=== PATIENT | male | born 1955 | race Caucasian/White ===

== ENCOUNTER 2018-09-14 23:00 | Emergency (ER) | payer OTHER ==
[2018-09-15 00:21] LABS: Calcium 8.9 mg/dL (8.4-10.2)
[2018-09-15 00:54] LABS: Basophils # (Auto) 0.1 K/mm3 (0.0-0.1); Basophils % (Auto) 0.5 % (0.0-1.8); Eosinophils # (Auto) 0.9 K/mm3 (0.0-0.4); Eosinophils % (Auto) 7.4 % (0.0-4.3); Hematocrit 39.7 % (35.5-45.6); Hemoglobin 13.1 gm/dl (11.8-15.2); Lymphocytes # (Auto) 3.2 K/mm3 (1.2-5.4); Mean Corpuscular HGB Conc 33 % (32-34); Mean Corpuscular Volume 79 fl (84-94); Monocytes # (Auto) 0.5 K/mm3 (0.0-0.8); Monocytes % (Auto) 4.7 % (0.0-7.3); Platelet Count 151 K/mm3 (140-440); Red Blood Count 5.01 M/mm3 (3.65-5.03); Red Cell Distribution Width 13.3 % (13.2-15.2)
[2018-09-15] MEDS ORDERED: NACL 0.9% 1000 ML 1,000 ML IV ONE (02:22)
[2018-09-15] MEDS ORDERED: HumuLIN R IV ONE (02:22)
--- NOTE | 2018-09-15 02:27 | Emergency Department Report ---
ED General Adult HPI - General Chief complaint: Hyperglycemia Stated complaint: HIGH BLOOD SUGAR Time Seen by Provider: 09/15/18 02:16 Source: patient, family Mode of arrival: Ambulatory Limitations: No Limitations - History of Present Illness Initial comments: Patient is 63 years old male with history of diabetes and hypertension. Patient is taking Lantus 20 units at night and metformin. Patient is out of his Lantus for 1 week. Patient was sent from primary care physician office for elevated blood glucose. Patient found to have a blood glucose of more than 500. Patient denied any symptoms except for right upper extremity pain. While examining the patient patient had a brief episode of altered mental status, family stated that patient's since he had a stroke last year has been having episodes like this. - Related Data Allergies Allergy/AdvReac Type Severity Reaction Status Date / Time No Known Allergies Allergy Unverified 09/14/18 23:09 ED Review of Systems ROS: Stated complaint: HIGH BLOOD SUGAR Other details as noted in HPI Comment: All other systems reviewed and negative Constitutional: denies: chills, fever Respiratory: denies: cough, orthopnea, shortness of breath, SOB with exertion Cardiovascular: denies: chest pain, palpitations, dyspnea on exertion Gastrointestinal: denies: abdominal pain, nausea, vomiting Musculoskeletal: denies: back pain Neurological: denies: headache, weakness, numbness, paresthesias, confusion ED Past Medical Hx - Past Medical History Previous Medical History?: Yes Hx Hypertension: Yes Hx Diabetes: Yes - Surgical History Past Surgical History?: No - Social History Smoking Status: Current Every Day Smoker Substance Use Type: None ED Physical Exam - General Limitations: No Limitations General appearance: alert, in no apparent distress - Head Head exam: Present: atraumatic, normocephalic, normal inspection - Eye Eye exam: Present: normal appearance, PERRL - ENT ENT exam: Present: normal exam, normal orophraynx, mucous membranes moist - Neck Neck exam: Present: normal inspection, full ROM. Absent: tenderness, meningismus, lymphadenopathy, thyromegaly - Respiratory Respiratory exam: Present: normal lung sounds bilaterally. Absent: respiratory distress, wheezes, rales, rhonchi, chest wall tenderness, accessory muscle use, decreased breath sounds, prolonged expiratory - Cardiovascular Cardiovascular Exam: Present: regular rate, normal rhythm, normal heart sounds - GI/Abdominal GI/Abdominal exam: Present: soft, normal bowel sounds. Absent: distended, tenderness, guarding, rebound, rigid, organomegaly, mass, bruit, pulsatile mass, hernia - Extremities Exam Extremities exam: Present: normal inspection, full ROM, normal capillary refill - Back Exam Back exam: Present: normal inspection, full ROM. Absent: tenderness, CVA tenderness (R), CVA tenderness (L), muscle spasm, paraspinal tenderness, vertebral tenderness - Neurological Exam Neurological exam: Present: alert, oriented X3, CN II-XII intact, normal gait, reflexes normal - Skin Skin exam: Present: warm, intact, normal color ED Course Vital Signs 09/14/18 09/15/18 09/15/18 23:07 02:23 02:28 Temperature 97.7 F Pulse Rate 70 59 L Respiratory 18 16 Rate Blood Pressure 129/65 O2 Sat by Pulse 100 99 Oximetry 09/15/18 09/15/18 09/15/18 02:30 02:45 03:00 Temperature Pulse Rate 60 60 65 Respiratory 12 13 15 Rate Blood Pressure 137/68 O2 Sat by Pulse 100 100 99 Oximetry 09/15/18 03:18 Temperature Pulse Rate 68 Respiratory Rate Blood Pressure O2 Sat by Pulse 100 Oximetry ED Medical Decision Making - Lab Data Result diagrams: 09/14/18 23:39 09/14/18 23:39 - Medical Decision Making Patient is 63 years old male with history of diabetes and hypertension. Patient is taking Lantus 20 units at night and metformin. Patient is out of his Lantus for 1 week. Patient was sent from primary care physician office for elevated blood glucose. Patient found to have a blood glucose of more than 500. Patient denied any symptoms except for right upper extremity pain. While examining the patient patient had a brief episode of altered mental status, family stated that patient's since he had a stroke last year has been having episodes like this. Patient remained stable in the ER. Patient received 7 units of regular insulin his current blood glucose now is 289. Patient to be discharged to follow-up with his primary care physician. Patient already have a prescription from his primary care physician for the Lantus. I advised the patient and his family to return to the ER if symptoms are not improved or if the patient develop new symptoms. Critical care attestation.: If time is entered above; I have spent that time in minutes in the direct care of this critically ill patient, excluding procedure time. ED Disposition Clinical Impression: Hyperglycemia Disposition: DC-01 TO HOME OR SELFCARE Is pt being admited?: No Condition: Stable Instructions: Diabetic Hyperglycemia (ED) Referrals: MAIA MESA MD [Primary Care Provider] - 3-5 Days
[2018-09-15 03:18] LABS: Bilirubin,Urine NEG (Negative); Blood,Urine NEG (Negative); Color,Urine Straw (Yellow); Urobilinogen,Urine < 2.0 mg/dL (<2.0)
[2018-09-15 03:30] VITALS: BP 137/68
--- NOTE | 2018-09-15 03:50 | Cat Scan Report ---
PROCEDURE: CT HEAD/BRAIN WO CON TECHNIQUE: Routine axial imaging was obtained of the brain without IV contrast. HISTORY: AMS COMPARISONS: None FINDINGS: There is a remote stroke in the left temporal lobe. There is no evidence of acute stroke or hemorrhag e. The ventricular system is appropriate in size and is symmetric. There are benign basal ganglial ca lcifications. The sinuses reveal patchy mucosal thickening in the ethmoidal and maxillary sinuses. Th e mastoid air cells are well pneumatized. The calvarium appears intact. IMPRESSION: Remote stroke in the left temporal lobe. No acute stroke or hemorrhage.. This document is electronically signed by Saul Mckeon MD., September 15 2018 03:48:04 AM ET
== END 2018-09-15 05:42 | disposition home or self-care (01) ==
LOC: ED 23:00
DX: E11.65 Type 2 diabetes mellitus with hyperglycemia (principal); I10 Essential (primary) hypertension; F17.200 Nicotine dependence, unspecified, uncomplicated
CPT/HCPCS: 36415; 70450; 80048; 81001; 82805; 82962; 85025; 96361; 96374; 99284; J7030; J1815

== ENCOUNTER 2018-09-15 06:46 | Inpatient (IN) | payer OTHER ==
--- NOTE | 2018-09-15 07:58 | Emergency Department Report ---
ED General Adult HPI - General Chief complaint: Syncope Stated complaint: SYNCOPE Time Seen by Provider: 09/15/18 07:40 Source: family, EMS Mode of arrival: Stretcher Limitations: No Limitations - History of Present Illness Initial comments: Patient presents to the emergency department with a chief complaint of syncopal episode. The patient was seen in the emergency department last night for hypoglycemia and treated for it and discharged home. Patient states when he got home he passed out. Patient denies chest pain prior or after his syncopal epi sode. Patient also denies shortness of breath or abdominal pain. 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 -: Sudden Severity scale (0 -10): 0 Consistency: now resolved Improves with: none Worsens with: none Associated Symptoms: denies other symptoms Treatments Prior to Arrival: none - Related Data Home Medications Medication Instructions Recorded Confirmed Last Taken Losartan [Cozaar] 100 mg PO QDAY 09/15/18 09/15/18 Unknown Metformin HCl [Glucophage] 1,000 mg PO BID 09/15/18 09/15/18 Unknown Naproxen 500 mg PO PRN 09/15/18 09/15/18 Unknown amLODIPine [Norvasc] 10 mg PO DAILY 09/15/18 09/15/18 Unknown Allergies Allergy/AdvReac Type Severity Reaction Status Date / Time No Known Allergies Allergy Unverified 09/14/18 23:09 ED Review of Systems ROS: Stated complaint: SYNCOPE Other details as noted in HPI Comment: All other systems reviewed and negative Constitutional: denies: chills, fever Eyes: denies: eye pain, eye discharge, vision change ENT: denies: ear pain, throat pain Respiratory: denies: cough, shortness of breath, wheezing Cardiovascular: denies: chest pain, palpitations Endocrine: no symptoms reported Gastrointestinal: denies: abdominal pain, nausea, diarrhea Genitourinary: denies: urgency, dysuria Musculoskeletal: denies: back pain, joint swelling, arthralgia Skin: denies: rash, lesions Neurological: denies: headache, weakness, paresthesias Psychiatric: denies: anxiety, depression Hematological/Lymphatic: denies: easy bleeding, easy bruising ED Past Medical Hx - Past Medical History Previous Medical History?: Yes Hx Hypertension: Yes Hx Diabetes: Yes - Social History Smoking Status: Never Smoker Substance Use Type: None - Medications Home Medications: Home Medications Medication Instructions Recorded Confirmed Last Taken Type Losartan [Cozaar] 100 mg PO QDAY 09/15/18 09/15/18 Unknown History Metformin HCl [Glucophage] 1,000 mg PO BID 09/15/18 09/15/18 Unknown History Naproxen 500 mg PO PRN 09/15/18 09/15/18 Unknown History amLODIPine [Norvasc] 10 mg PO DAILY 09/15/18 09/15/18 Unknown History ED Physical Exam - General Limitations: No Limitations General appearance: alert, in no apparent distress - Head Head exam: Present: atraumatic, normocephalic - Eye Eye exam: Present: normal appearance, PERRL, EOMI - ENT ENT exam: Present: mucous membranes moist - Neck Neck exam: Present: normal inspection - Respiratory Respiratory exam: Present: normal lung sounds bilaterally. Absent: respiratory distress, wheezes, rales - Cardiovascular Cardiovascular Exam: Present: regular rate, normal rhythm. Absent: systolic murmur, diastolic murmur, rubs, gallop - GI/Abdominal GI/Abdominal exam: Present: soft, normal bowel sounds. Absent: distended, tenderness - Rectal Rectal exam: Present: deferred - Extremities Exam Extremities exam: Present: normal inspection - Back Exam Back exam: Present: normal inspection - Neurological Exam Neurological exam: Present: alert, oriented X3, CN II-XII intact. Absent: motor sensory deficit - Psychiatric Psychiatric exam: Present: normal affect, normal mood - Skin Skin exam: Present: warm, dry, intact, normal color. Absent: rash ED Course Vital Signs 09/15/18 09/15/18 09/15/18 06:53 07:00 07:40 Temperature 97.5 F L Pulse Rate 70 68 Respiratory 18 13 13 Rate Blood Pressure 140/68 O2 Sat by Pulse 98 98 Oximetry 09/15/18 09/15/18 09/15/18 08:00 09:00 10:00 Temperature Pulse Rate 64 62 57 L Respiratory 11 L 9 L 12 Rate Blood Pressure 154/77 169/73 167/68 O2 Sat by Pulse 98 99 99 Oximetry ED Medical Decision Making - Lab Data Lab Results 09/15/18 09/15/18 09/15/18 Range/Units 08:01 10:05 10:29 POC Glucose 293 H (70-105) Troponin T < 0.010 (0.00-0.029) ng/mL Urine Color Yellow (Yellow) Urine Turbidity Clear (Clear) Urine pH 6.0 (5.0-7.0) Ur Specific [place] 1.017 (1.003-1.030) Urine Protein 100 mg/dl (Negative) mg/dL Urine Glucose (UA) >=500 (Negative) mg/dL Urine Ketones Neg (Negative) mg/dL Urine Blood Sm (Negative) Urine Nitrite Neg (Negative) Urine Bilirubin Neg (Negative) Urine Urobilinogen < 2.0 (<2.0) mg/dL Ur Leukocyte Esterase Tr (Negative) Urine WBC (Auto) 2.0 (0.0-6.0) /HPF Urine RBC (Auto) 1.0 (0.0-6.0) /HPF U Epithel Cells (Auto) 3.0 (0-13.0) /HPF Urine Bacteria (Auto) 1+ (Negative) /HPF Urine Mucus Few /HPF Urine Sperm Few (SUPERVISOR BINDERY) /HPF - EKG Data -: EKG Interpreted by Me EKG shows normal: sinus rhythm Rate: bradycardia - Radiology Data Radiology results: report reviewed - Medical Decision Making Patient's labs and CAT scan were reviewed from previous visit within the last 12 hours Since the studies were recently done a CAT scan of the head and majority of the blood was not repeated Discussed plan of care and was also patient and his family Critical care attestation.: If time is entered above; I have spent that time in minutes in the direct care of this critically ill patient, excluding procedure time. ED Disposition Clinical Impression: Syncope Disposition: DC-09 OP ADMIT IP TO THIS HOSP Is pt being admited?: Yes Does the pt Need Aspirin: No Condition: Fair Instructions: Syncope (ED) Referrals: LIZETH CORDOVA MD [Primary Care Provider] - 3-5 Days
--- NOTE | 2018-09-15 08:45 | XRay Report ---
PROCEDURE: XR CHEST 1V AP TECHNIQUE: AP portable chest radiograph HISTORY: syncope COMPARISONS: None FINDINGS: No mediastinal shift. Cardiac silhouette is not enlarged. No pneumothorax or effusion. A 2.5 cm oval pulmonary nodule projects over the region of the right minor fissure. No acute skeletal findings. IMPRESSION: No acute pulmonary finding identified. An oval 2.5 cm right lung pulmonary nodule projects over the region of the minor fissure. CT follow-u p is recommended if this finding has not been previously documented. This document is electronically signed by Dinesh Melendez MD., September 15 2018 08:44:10 AM ET
[2018-09-15 10:40] LABS: Bacteria,Urine 1+ /HPF (Negative); Bilirubin,Urine NEG (Negative); Blood,Urine SM (Negative); Color,Urine Yellow (Yellow); Mucus,Urine FEW /HPF; Sperm,Urine FEW /HPF (NP); Urobilinogen,Urine < 2.0 mg/dL (<2.0)
[2018-09-15] MEDS: HumaLOG SUB-Q SCH ×2 (18:38→22:39)
[2018-09-15] MEDS ORDERED: TYLENOL PO PRN ×2 (18:38→21:04)
--- NOTE | 2018-09-15 20:59 | History and Physical Report ---
History of Present Illness Date of examination: 09/15/18 Date of admission: 09/15/18 11:37 Chief complaint: Passed out this am History of present illness: 63 y/o male with PMH of HTN and T2DM apparently passed out this am.No chest pain.LOC for a few seconds.No diaphoresis or palpitations. Patient was treated high BG levels in ER yesterday and was discharged home. Hos BGl levels were in 500 yesterday.No Low sugars. Past Medical History Hypertension T2DM Past surgical History N/a Social History Smoking Status: Never Smoker Substance Use Type: None Family History Htn Review of Systems ROS: Stated complaint: SYNCOPE Other details as noted in HPI Comment: All other systems reviewed and negative Constitutional: denies: chills, fever Eyes: denies: eye pain, eye discharge, vision change ENT: denies: ear pain, throat pain Respiratory: denies: cough, shortness of breath, wheezing Cardiovascular: denies: chest pain, palpitations Endocrine: no symptoms reported Gastrointestinal: denies: abdominal pain, nausea, diarrhea Genitourinary: denies: urgency, dysuria Musculoskeletal: denies: back pain, joint swelling, arthralgia Skin: denies: rash, lesions Neurological: denies: headache, weakness, paresthesias Psychiatric: denies: anxiety, depression Hematological/Lymphatic: denies: easy bleeding, easy bruising Medications and Allergies Allergies Allergy/AdvReac Type Severity Reaction Status Date / Time No Known Allergies Allergy Unverified 09/14/18 23:09 Home Medications Medication Instructions Recorded Confirmed Last Taken Type Losartan [Cozaar] 100 mg PO QDAY 09/15/18 09/15/18 Unknown History Metformin HCl [Glucophage] 1,000 mg PO BID 09/15/18 09/15/18 Unknown History Naproxen 500 mg PO PRN 09/15/18 09/15/18 Unknown History amLODIPine [Norvasc] 10 mg PO DAILY 09/15/18 09/15/18 Unknown History Active Meds: Active Medications Acetaminophen (Tylenol) 650 mg PO Q6H PRN PRN Reason: Pain, Mild (1-3) Insulin Human Lispro (Humalog) 0 unit SUB-Q ACHS [facility]; Protocol Last Admin: 09/15/18 18:38 Dose: 6 unit Documented by: Exam - Constitutional Vitals: Temp Pulse Resp BP Pulse Ox 97.8 F 105 H 11 L 163/98 96 09/15/18 15:03 09/15/18 16:41 09/15/18 16:41 09/15/18 16:41 09/15/18 16:41 General appearance: Present: no acute distress, well-nourished - EENT Eyes: Present: PERRL ENT: hearing intact, clear oral mucosa - Neck Neck: Present: supple, normal ROM - Respiratory Respiratory effort: normal Respiratory: bilateral: CTA - Cardiovascular Heart rate: 59 Rhythm: regular Heart Sounds: Present: S1 & S2. Absent: rub, click - Extremities Extremities: no ischemia, pulses intact, pulses symmetrical, No edema Peripheral Pulses: within normal limits - Abdominal General gastrointestinal: Present: soft, non-tender, non-distended, normal bowel sounds Male genitourinary: Present: normal - Integumentary Integumentary: Present: clear, warm, dry - Musculoskeletal Musculoskeletal: gait normal, strength equal bilaterally - Psychiatric Psychiatric: appropriate mood/affect, intact judgment & insight - Neurologic Neurologic: CNII-XII intact, moves all extremities Results - Labs CBC & Chem 7: 09/16/18 04:55 09/16/18 04:55 Labs: Laboratory Last Values POC Glucose 354 (70-105) H 09/15/18 17:58 Troponin T < 0.010 ng/mL (0.00-0.029) 09/15/18 08:01 Urine Color Yellow (Yellow) 09/15/18 10:05 Urine Turbidity Clear (Clear) 09/15/18 10:05 Urine pH 6.0 (5.0-7.0) 09/15/18 10:05 Ur Specific [place] 1.017 (1.003-1.030) 09/15/18 10:05 Urine Protein 100 mg/dl mg/dL (Negative) 09/15/18 10:05 Urine Glucose (UA) >=500 mg/dL (Negative) 09/15/18 10:05 Urine Ketones Neg mg/dL (Negative) 09/15/18 10:05 Urine Blood Sm (Negative) 09/15/18 10:05 Urine Nitrite Neg (Negative) 09/15/18 10:05 Urine Bilirubin Neg (Negative) 09/15/18 10:05 Urine Urobilinogen < 2.0 mg/dL (<2.0) 09/15/18 10:05 Ur Leukocyte Esterase Tr (Negative) 09/15/18 10:05 Urine WBC (Auto) 2.0 /HPF (0.0-6.0) 09/15/18 10:05 Urine RBC (Auto) 1.0 /HPF (0.0-6.0) 09/15/18 10:05 U Epithel Cells (Auto) 3.0 /HPF (0-13.0) 09/15/18 10:05 Urine Bacteria (Auto) 1+ /HPF (Negative) 09/15/18 10:05 Urine Mucus Few /HPF 09/15/18 10:05 Urine Sperm Few /HPF (NAILER OPERATOR) 09/15/18 10:05 Short CBC 09/15/18 09/16/18 Range/Units 21:41 04:55 WBC 10.3 10.9 (4.5-11.0) K/mm3 Hgb 12.9 12.4 (11.8-15.2) gm/dl Hct 39.0 38.1 (35.5-45.6) % Plt Count 185 174 (140-440) K/mm3 BMP 09/15/18 09/16/18 21:41 04:55 Sodium 138 D 143 Potassium 3.8 3.7 Chloride 102.0 105.4 Carbon Dioxide 22 23 BUN 25 H 24 H Creatinine 1.3 1.3 Glucose 335 H 101 H Calcium 8.6 8.6 Cardiac Enzymes 09/15/18 Range/Units 08:01 Troponin T < 0.010 (0.00-0.029) ng/mL Liver Function 09/15/18 Range/Units 21:41 Total Bilirubin 0.20 (0.1-1.2) mg/dL AST 11 (5-40) units/L ALT 10 (7-56) units/L Alkaline Phosphatase 71 (35-129) units/L Albumin 3.2 L (3.9-5) g/dL Urine 09/15/18 Range/Units 10:05 Urine Color Yellow (Yellow) Urine pH 6.0 (5.0-7.0) Ur Specific [place] 1.017 (1.003-1.030) Urine Protein 100 mg/dl (Negative) mg/dL Urine Glucose (UA) >=500 (Negative) mg/dL - Imaging and Cardiology EKG: report reviewed (sinus bradycardia) Chest x-ray: report reviewed Imaging and Cardiology: CXR IMPRESSION: No acute pulmonary finding identified. An oval 2.5 cm right lung pulmonary nodule projects over the region of the minor fissure. CT follow-up is recommended if this finding has not been previously documented. Assessment and Plan Advance Directives: Yes (Full code) VTE prophylaxis?: Chemical - Patient Problems (1) Syncope Current Visit: Yes Status: Acute Plan to address problem: Syncope w/u Check Lexiscan ECHO and CDS (2) Pulmonary nodule Current Visit: Yes Status: Chronic Plan to address problem: Chest CT ordered Pulnm consult reuested so that patient can follow up for Pulm nodule (3) T2DM (type 2 diabetes mellitus) Current Visit: Yes Status: Chronic Qualifiers: Diabetes mellitus group home insulin use: unspecified group home insulin use status Plan to address problem: Uncontrolled Added Tradjenta and Glipizide 5 mg po qd No need for Long acting insulin at this point F/u with PCP for better control of T2DM (4) HTN (hypertension) Current Visit: Yes Status: Chronic Qualifiers: Hypertension type: essential hypertension Qualified Code(s): I10 - Essential (primary) hypertension Plan to address problem: Cont antihypertensives (5) DVT prophylaxis Current Visit: Yes Status: Acute Plan to address problem: On Lovenox and GI prophylaxis
[2018-09-15] MEDS ORDERED: DILAUDID IV PRN (21:04)
[2018-09-15] MEDS ORDERED: ZOFRAN IV PRN (21:04)
[2018-09-15] MEDS ORDERED: PERCOCET 5/325 PO PRN (21:04)
[2018-09-15] MEDS ORDERED: SODIUM CHLORIDE FLUSH SYRINGE 10 ML IV PRN (21:04)
[2018-09-15] MEDS: NACL 0.9% 1000 ML 1,000 ML IV SCH (22:03)
[2018-09-15] MEDS: SODIUM CHLORIDE FLUSH SYRINGE 10 ML IV SCH (22:11)
[2018-09-15 23:17] LABS: Basophils # (Auto) 0.1 K/mm3 (0.0-0.1); Basophils % (Auto) 0.6 % (0.0-1.8); Eosinophils # (Auto) 1.1 K/mm3 (0.0-0.4); Eosinophils % (Auto) 10.7 % (0.0-4.3); Hemoglobin 12.9 gm/dl (11.8-15.2); Lymphocytes # (Auto) 2.7 K/mm3 (1.2-5.4); Lymphocytes % (Auto) 25.9 % (13.4-35.0); Mean Corpuscular HGB Conc 33 % (32-34); Mean Corpuscular Volume 80 fl (84-94); Monocytes # (Auto) 0.6 K/mm3 (0.0-0.8); Monocytes % (Auto) 5.5 % (0.0-7.3); Platelet Count 185 K/mm3 (140-440); Red Blood Count 4.87 M/mm3 (3.65-5.03); Red Cell Distribution Width 13.5 % (13.2-15.2)
[2018-09-15 23:51] LABS: Albumin 3.2 g/dL (3.9-5); Calcium 8.6 mg/dL (8.4-10.2)
[2018-09-16 06:17] LABS: Basophils % (Auto) 0.4 % (0.0-1.8); Eosinophils # (Auto) 0.4 K/mm3 (0.0-0.4); Eosinophils % (Auto) 3.3 % (0.0-4.3); Hematocrit 38.1 % (35.5-45.6); Hemoglobin 12.4 gm/dl (11.8-15.2); Lymphocytes # (Auto) 1.5 K/mm3 (1.2-5.4); Lymphocytes % (Auto) 13.8 % (13.4-35.0); Mean Corpuscular HGB Conc 33 % (32-34); Mean Corpuscular Volume 80 fl (84-94); Monocytes # (Auto) 0.5 K/mm3 (0.0-0.8); Monocytes % (Auto) 4.6 % (0.0-7.3); Platelet Count 174 K/mm3 (140-440); Red Blood Count 4.74 M/mm3 (3.65-5.03); Red Cell Distribution Width 13.6 % (13.2-15.2)
[2018-09-16 06:26] LABS: Calcium 8.6 mg/dL (8.4-10.2)
[2018-09-16] MEDS ORDERED: GLUCOPHAGE PO SCH (08:00)
[2018-09-16] MEDS ORDERED: GLUCOTROL PO SCH (08:00)
[2018-09-16] MEDS: HumaLOG SUB-Q SCH ×5 (08:19→22:56)
[2018-09-16] MEDS ORDERED: LEXISCAN IV ONE ×2 (09:40→10:00)
--- NOTE | 2018-09-16 09:49 | Consultation ---
History of Present Illness Consult date: 09/16/18 Requesting physician: CORDELL GALVAN Reason for consult: other (Pulmonary nodule) History of present illness: Patient presents to the emergency department with a chief complaint of syncopal episode. The patient was seen in the emergency department last night for hypoglycemia and treated for it and discharged home. Patient states when he got home he passed out. Patient denies chest pain prior or after his syncopal e pisode. Patient also denies shortness of breath or abdominal pain. Part of his work up was a CXR which showed a right lower lobe mass. A chest CT was done and I have been consulted fro the lung mass. Patient was seen and examined. Vitals, labs, medications, chart and imaging were rviewed. He currently denies any chest pain, no shortness of breath, no hemoptysis No night sweats, no chills, no weight loss. Originally from [facility] Smoker 1 PPD for many years, still smoking. ROS: Stated complaint: SYNCOPE Other details as noted in HPI Comment: All other systems reviewed and negative Constitutional: denies: chills, fever Eyes: denies: eye pain, eye discharge, vision change ENT: denies: ear pain, throat pain Respiratory: denies: cough, shortness of breath, wheezing Cardiovascular: denies: chest pain, palpitations Endocrine: no symptoms reported Gastrointestinal: denies: abdominal pain, nausea, diarrhea Genitourinary: denies: urgency, dysuria Musculoskeletal: denies: back pain, joint swelling, arthralgia Skin: denies: rash, lesions Neurological: denies: headache, weakness, paresthesias Psychiatric: denies: anxiety, depression Hematological/Lymphatic: denies: easy bleeding, easy bruising - Past Medical History Previous Medical History?: Yes Hx Hypertension: Yes Hx Diabetes: Yes Medications and Allergies Allergies Allergy/AdvReac Type Severity Reaction Status Date / Time No Known Allergies Allergy Unverified 09/14/18 23:09 Home Medications Medication Instructions Recorded Confirmed Last Taken Type Losartan [Cozaar] 100 mg PO QDAY 09/15/18 09/15/18 Unknown History amLODIPine [Norvasc] 10 mg PO DAILY 09/15/18 09/15/18 Unknown History Insulin Glargine [Lantus VIAL] 14 units SUB-Q QHS #30 units 09/16/18 Unknown Rx Insulin Regular, Human [HumuLIN R] 0 unit SQ AC #1 vial 09/16/18 Unknown Rx Active Meds: Active Medications Acetaminophen (Tylenol) 650 mg PO Q4H PRN PRN Reason: Pain MILD(1-3)/Fever >100.5/BLACKMAN Amlodipine Besylate (Norvasc) 10 mg PO DAILY [facility] Enoxaparin Sodium (Lovenox) 40 mg SUB-Q QDAY@2200 SAVANNAH Glipizide (Glucotrol) 5 mg PO QDDIAB [facility] Last Admin: 09/16/18 08:20 Dose: Not Given Documented by: Hydromorphone HCl (Dilaudid) 0.5 mg IV Q3H PRN PRN Reason: Pain , Severe (7-10) Sodium Chloride (Nacl 0.9% 1000 Ml) 1,000 mls @ 100 mls/hr IV DIRECT [facility] Last Admin: 09/15/18 22:03 Dose: 100 mls/hr Documented by: Insulin Human Lispro (Humalog) 0 unit SUB-Q [facility]; Protocol Last Admin: 09/16/18 08:19 Dose: Not Given Documented by: Linagliptin (Tradjenta) 5 mg PO QDAY [facility] Losartan Potassium (Cozaar) 100 mg PO QDAY [facility] Metformin HCl (Glucophage) 1,000 mg PO BIDDIAB [facility] Last Admin: 09/16/18 08:20 Dose: Not Given Documented by: Ondansetron HCl (Zofran) 4 mg IV Q8H PRN PRN Reason: Nausea And Vomiting Oxycodone/Acetaminophen (Percocet 5/325) 1 tab PO Q6H PRN PRN Reason: Pain, Moderate (4-6) Regadenoson (Lexiscan) 0.4 mg IV ONCE ONE Stop: 09/16/18 09:39 Sodium Chloride (Sodium Chloride Flush Syringe 10 Ml) 10 ml IV BID [facility] Last Admin: 09/15/18 22:11 Dose: 10 ml Documented by: Sodium Chloride (Sodium Chloride Flush Syringe 10 Ml) 10 ml IV PRN PRN PRN Reason: LINE FLUSH Physical Examination Vital signs: Vital Signs Temp Pulse Resp Pulse Ox 97.5 F L 70 18 98 09/15/18 06:53 09/15/18 06:53 09/15/18 06:53 09/15/18 06:53 General appearance: Present: no acute distress, well-nourished - EENT Eyes: Present: PERRL ENT: hearing intact, clear oral mucosa - Neck Neck: Present: supple, normal ROM - Respiratory Respiratory effort: normal Respiratory: bilateral: CTA - Cardiovascular Heart rate: 59 Rhythm: regular Heart Sounds: Present: S1 & S2. Absent: rub, click - Extremities Extremities: no ischemia, pulses intact, pulses symmetrical, No edema Peripheral Pulses: within normal limits - Abdominal General gastrointestinal: Present: soft, non-tender, non-distended, normal bowel sounds Male genitourinary: Present: normal - Integumentary Integumentary: Present: clear, warm, dry - Musculoskeletal Musculoskeletal: gait normal, strength equal bilaterally - Psychiatric Psychiatric: appropriate mood/affect, intact judgment & insight - Neurologic Neurologic: CNII-XII intact, moves all extremities Results - Laboratory Findings CBC and BMP: 09/16/18 04:55 09/16/18 04:55 Abnormal lab findings: Abnormal Labs 09/15/18 09/15/18 09/15/18 10:29 17:58 21:41 MCV 80 L MCH 26 L Eos % (Auto) 10.7 H Eos # 1.1 H Seg Neutrophils % Seg Neutrophils # BUN Glucose POC Glucose 293 H 354 H Hemoglobin A1c Total Protein Albumin 09/15/18 09/15/18 09/15/18 21:41 21:41 21:58 MCV MCH Eos % (Auto) Eos # Seg Neutrophils % Seg Neutrophils # BUN 25 H Glucose 335 H POC Glucose 309 H Hemoglobin A1c 13.4 H Total Protein 5.8 L Albumin 3.2 L 09/16/18 09/16/18 09/16/18 04:55 04:55 07:45 MCV 80 L MCH 26 L Eos % (Auto) Eos # Seg Neutrophils % 77.9 H Seg Neutrophils # 8.5 H BUN 24 H Glucose 101 H POC Glucose 126 H Hemoglobin A1c Total Protein Albumin Assessment and Plan Right lower lobe lung mass Tobacco use disorder, ongoing Syncope Type 2 DM, poorly controlled HTN - I have no previous films to compare to. The location and nodule characteristics are low probability for lung cancer, however the patient characteristics, make the possibility of malignancy high. Would recommend CT guided biopsy of the mass -Nicotine withdrawal precautions -Smoking cessation counselling done at the bedside. he states he never knew smoking was bad, so he will quit. -Accuchecks, glycemic control -VTE prophylaxis -Nicotine withdrawal precautions -Lifestyle modifications -Blood pressure control. Thank you very much for this consult. Will follow. Discussed with Dr. Galvan, re my recommendations.
[2018-09-16] MEDS ORDERED: TRADJENTA PO SCH (10:00)
--- NOTE | 2018-09-16 12:15 | Cat Scan Report ---
CT CHEST WITH CONTRAST: HISTORY: Pulmonary nodule. COMPARISON: 10/20/09. TECHNIQUE: Helical CT in 1.25mm intervals following IV contrast. Sagittal and coronal reformatted images. FINDINGS: Thyroid gland: Normal. Tracheobronchial tree: Normal. Esophagus: Normal. Heart: Normal. Pericardium: Normal. Mediastinum: There are mild to moderate atherosclerotic plaques in the thoracic aorta. No large aneurysm, dissection or stenosis. Lung Sung: A 3 mm calcified granuloma is identified at the left apex. A 5 mm calcified granuloma is identified in the left lower lobe. There are 3 calcified granulomas with mild surrounding scarring in the superior segment of the right lower lobe measuring 2.3 cm, 0.5 cm and 0.4 cm. No suspicious noncalcified pulmonary nodule. The lung parenchyma is within normal limits. Pleural Spaces: Normal. Musculoskeletal: Intact. Mild thoracic spondylosis. IMPRESSION: Chronic granulomatous disease as described above which is unchanged since 10/20/09. No suspicious pulmonary nodule.
--- NOTE | 2018-09-16 13:31 | Vascular Lab Report ---
PROCEDURE: VL CAROTID DUPLEX BILAT TECHNIQUE: Duplex Doppler ultrasound examination of the cervical arteries bilaterally. Note: Measurement of carotid stenosis is based on flow velocity values that correlate with the [place] Symptomatic Carotid Endarterectomy Trial (NASCET) based stenosis criteria using the internal carotid artery diameter as the denominator for stenosis calculation. HISTORY: Syncope COMPARISONS: None FINDINGS: Echogenic heterogeneous plaque is present without evidence of ulceration in the carotid artery system bilaterally. Flow is antegrade in both vertebral arteries. No evidence of aneurysm or occlusion. Abnormal peak systolic and end-diastolic centimeters per second velocity elevation: Right Proximal ICA, 386, 102 Left distal ICA, 134, 46 IMPRESSION: Bilateral carotid artery atherosclerotic change Right proximal ICA velocity elevation suggest greater than 70% diameter stenosis. Corresponding color image Doppler image suggests stenosis closer to 75% diameter. Follow-up carotid CTA or MRA may be us eful. Left distal ICA velocity elevation suggests diameter stenosis between 50 and 69%. This document is electronically signed by Azam Markham MD., September 16 2018 01:28:56 PM ET
--- NOTE | 2018-09-16 13:42 | Event Note ---
Date: 09/16/18 CT demonstrates chronic granulomatous disease with a focal partially noncalcified nodule with speckled calcifications which is unchanged since . Do not recommend CT guided biopsy of the presumed noncalficied granuloma. This is unchanged for essentially 9 years.
[2018-09-16] MEDS: COZAAR PO SCH (13:45)
[2018-09-16] MEDS: NORVASC PO SCH (13:46)
[2018-09-16] MEDS: SODIUM CHLORIDE FLUSH SYRINGE 10 ML IV SCH ×2 (13:47→22:55)
[2018-09-16] MEDS: NACL 0.9% 1000 ML 1,000 ML IV SCH (13:49)
--- NOTE | 2018-09-16 15:50 | Discharge Summary ---
Providers - Providers Date of Admission: 09/15/18 11:37 Attending physician: CORDELL MAHONEY MD 09/16/18 06:41 Consult to Physician [CONS] Routine Comment: Consulting Provider: HANY AGUILA Physician Instructions: Reason For Exam: solitary pulm nodule 09/16/18 11:39 Consult to Interventional Radiology [CONS] Routine Consulting Provider: HUBER PRECIADO Reason For Exam: Lobar nodule/mass- needs biopsy Place consult to:: DR. PRECIADO OFFICE Notified:: DR. Mcpherson OFFICE Phone number called:: [phone] Was contact made?: Yes If yes, spoke with:: ISABEL Time called:: 12:41 Comment:: NURSE IS NOTIFIED [facility] Condition: Fair Disposition: DC-01 TO HOME OR SELFCARE Exam - Constitutional Vitals: Temp Pulse Resp BP Pulse Ox 97.5 F L 60 20 151/66 99 09/16/18 07:06 09/16/18 13:46 09/16/18 08:04 09/16/18 13:46 09/16/18 07:06 Plan Activity: advance as tolerated, fall precautions Diet: diabetic Special Instructions: record daily BP diary, record blood sugar diary Follow up with: MAISHA MUNOZWALLINGFORD MD ERIC [Primary Care Provider] - 3-5 Days Prescriptions: Insulin Glargine [Lantus VIAL] 14 units SUB-Q QHS #30 units
--- NOTE | 2018-09-16 20:17 | Treadmill Report ---
NUCLEAR PERFUSION SCAN PROTOCOL: The patient was brought to the stress lab in a postabsorptive state, given 10 mCi of technetium 99m at rest. The patient underwent rest imaging. The patient underwent Lexiscan stress test. At peak stress, the patient was given 26 mCi of technetium 99m. Shortly after stress imaging, raw imaging reveals mild GI artifact, no significant motion artifact. SPECT imaging examined carefully in the horizontal long axis, vertical long axis, short axis views. There was normal homogenous uptake of radioisotope in all reported segments. No evidence of significant fixed or reversible perfusion defects suggestive of prior infarction or ischemia. Gated wall motion reveals normal systolic thickening, calculated ejection fraction of 74%. No TID. CONCLUSIONS: 1. Normal myocardial perfusion scan without evidence of active ischemia or prior infarction. 2. Normal left ventricular systolic performance systolic performance without evidence of transient ischemic dilatation or stress-induced segmental wall motion abnormalities. JOB# [id number] CHIOMA/YENY
[2018-09-16] MEDS ORDERED: ATIVAN IV PRN (20:23)
--- NOTE | 2018-09-16 20:44 | Event Note ---
Date: 09/16/18 High BG levels Increased Lantus to 25 units qhs Held discharge Slightly altered sensorium
[2018-09-16] MEDS ORDERED: LANTUS SUB-Q SCH (22:00)
--- NOTE | 2018-09-16 22:10 | Progress Note ---
Assessment and Plan Assessment and plan: 63 y/o male with PMH of HTN and T2DM apparently passed out this am.No chest pain. LOC for a few seconds. No diaphoresis or palpitations. Patient was treated high BG levels in ER yesterday and was discharged home. Events happened after the patient arrived home prior to discharge from the ER his blood sugar was 200s. The patient had a stress test today that was negative plan was to discharge the patient is felt that this could be secondary to hypoglycemia but the events reoccurred again the hospital with a blood sugar being in the 400s CT chest: IMPRESSION: Chronic granulomatous disease as described above which is unchanged since 10/20/09. No suspicious pulmonary nodule. 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 reports remarkable improvement no further symptoms family members visiting reports that the patient was in the hospital was noted to have a blood sugar above 500 was treated and discharged home a few hours after arrival to home while walking to the bathroom he had a syncopal episode. He was noted to have "his eyes rolling backwards". No other description of tonic-clonic activity was noted. Hospitalist Physical - Physical exam Narrative exam: VITAL SIGNS: Reviewed. GENERAL: The patient appeared well nourished and normally developed, Vital signs as documented. HEAD: No signs of head trauma. EYES: Pupils are equal. Extraocular motions intact. EARS: Hearing grossly intact. MOUTH: Oropharynx is normal. NECK: No adenopathy, no JVD. CHEST: Chest with clear breath sounds bilaterally. No wheezes, rales, or rhonchi. CARDIAC: Regular rate and rhythm. S1 and S2, without murmurs, gallops, or rubs. VASCULAR: No Edema. Peripheral pulses normal and equal in all extremities. ABDOMEN: Soft, non tender and non distended. No rebound or guarding, and no masses palpated. Bowel Sounds normal. MUSCULOSKELETAL: Good range of motion of all major joints. Extremities without clubbing, cyanosis or edema. NEUROLOGIC EXAM: Alert and oriented x 3 No focal sensory or strength deficits. Speech normal. Follows commands. PSYCHIATRIC: Mood normal. SKIN: No rash or lesions. - Constitutional Vitals: Temp Pulse Resp BP Pulse Ox 98.8 F 73 20 147/60 99 09/16/18 17:37 09/16/18 17:37 09/16/18 17:37 09/16/18 17:37 09/16/18 17:37 General appearance: Present: no acute distress, well-nourished Results - Labs CBC & Chem 7: 09/16/18 04:55 09/16/18 04:55 Labs: Laboratory Last Values WBC 10.9 K/mm3 (4.5-11.0) 09/16/18 04:55 RBC 4.74 M/mm3 (3.65-5.03) 09/16/18 04:55 Hgb 12.4 gm/dl (11.8-15.2) 09/16/18 04:55 Hct 38.1 % (35.5-45.6) 09/16/18 04:55 MCV 80 fl (84-94) L 09/16/18 04:55 MCH 26 pg (28-32) L 09/16/18 04:55 MCHC 33 % (32-34) 09/16/18 04:55 RDW 13.6 % (13.2-15.2) 09/16/18 04:55 Plt Count 174 K/mm3 (140-440) 09/16/18 04:55 Lymph % (Auto) 13.8 % (13.4-35.0) 09/16/18 04:55 Colbert % (Auto) 4.6 % (0.0-7.3) 09/16/18 04:55 Eos % (Auto) 3.3 % (0.0-4.3) 09/16/18 04:55 Baso % (Auto) 0.4 % (0.0-1.8) 09/16/18 04:55 Lymph # 1.5 K/mm3 (1.2-5.4) 09/16/18 04:55 Colbert # 0.5 K/mm3 (0.0-0.8) 09/16/18 04:55 Eos # 0.4 K/mm3 (0.0-0.4) 09/16/18 04:55 Baso # 0.0 K/mm3 (0.0-0.1) 09/16/18 04:55 Seg Neutrophils % 77.9 % (40.0-70.0) H 09/16/18 04:55 Seg Neutrophils # 8.5 K/mm3 (1.8-7.7) H 09/16/18 04:55 Sodium 143 mmol/L (137-145) 09/16/18 04:55 Potassium 3.7 mmol/L (3.6-5.0) 09/16/18 04:55 Chloride 105.4 mmol/L (98-107) 09/16/18 04:55 Carbon Dioxide 23 mmol/L (22-30) 09/16/18 04:55 Anion Gap 18 mmol/L 09/16/18 04:55 BUN 24 mg/dL (9-20) H 09/16/18 04:55 Creatinine 1.3 mg/dL (0.8-1.5) 09/16/18 04:55 Estimated GFR 56 ml/min 09/16/18 04:55 BUN/Creatinine Ratio 18 % 09/16/18 04:55 Glucose 101 mg/dL (75-100) H 09/16/18 04:55 POC Glucose 262 (70-105) H 09/16/18 22:00 Hemoglobin A1c 13.4 % (4-6) H 09/15/18 21:41 Calcium 8.6 mg/dL (8.4-10.2) 09/16/18 04:55 Total Bilirubin 0.20 mg/dL (0.1-1.2) 09/15/18 21:41 AST 11 units/L (5-40) 09/15/18 21:41 ALT 10 units/L (7-56) 09/15/18 21:41 Alkaline Phosphatase 71 units/L (35-129) 09/15/18 21:41 Troponin T < 0.010 ng/mL (0.00-0.029) 09/16/18 07:54 Total Protein 5.8 g/dL (6.3-8.2) L 09/15/18 21:41 Albumin 3.2 g/dL (3.9-5) L 09/15/18 21:41 Albumin/Globulin Ratio 1.2 % 09/15/18 21:41 Urine Color Yellow (Yellow) 09/15/18 10:05 Urine Turbidity Clear (Clear) 09/15/18 10:05 Urine pH 6.0 (5.0-7.0) 09/15/18 10:05 Ur Specific Hubbard 1.017 (1.003-1.030) 09/15/18 10:05 Urine Protein 100 mg/dl mg/dL (Negative) 09/15/18 10:05 Urine Glucose (UA) >=500 mg/dL (Negative) 09/15/18 10:05 Urine Ketones Neg mg/dL (Negative) 09/15/18 10:05 Urine Blood Sm (Negative) 09/15/18 10:05 Urine Nitrite Neg (Negative) 09/15/18 10:05 Urine Bilirubin Neg (Negative) 09/15/18 10:05 Urine Urobilinogen < 2.0 mg/dL (<2.0) 09/15/18 10:05 Ur Leukocyte Esterase Tr (Negative) 09/15/18 10:05 Urine WBC (Auto) 2.0 /HPF (0.0-6.0) 09/15/18 10:05 Urine RBC (Auto) 1.0 /HPF (0.0-6.0) 09/15/18 10:05 U Epithel Cells (Auto) 3.0 /HPF (0-13.0) 09/15/18 10:05 Urine Bacteria (Auto) 1+ /HPF (Negative) 09/15/18 10:05 Urine Mucus Few /HPF 09/15/18 10:05 Urine Sperm Few /HPF ([employer]) 09/15/18 10:05 Active Medications - Current Medications Current Medications: Generic Name Dose Route Start Last Admin Trade Name Freq PRN Reason Stop Dose Admin Acetaminophen 650 mg 09/15/18 21:04 Tylenol PO Q4H PRN Pain MILD(1-3)/Fever >100.5/BLACKMAN Amlodipine Besylate 10 mg 09/16/18 10:00 09/16/18 13:46 Norvasc PO 10 mg DAILY [facility] Administration Enoxaparin Sodium 40 mg 09/16/18 22:00 Lovenox SUB-Q QDAY@2200 SAVANNAH Hydromorphone HCl 0.5 mg 09/15/18 21:04 Dilaudid IV Q3H PRN Pain , Severe (7-10) Sodium Chloride 1,000 mls @ 150 mls/hr 09/15/18 22:00 09/16/18 13:49 Nacl 0.9% 1000 Ml IV 100 mls/hr DIRECT SAVANNAH Administration Insulin Glargine 25 units 09/16/18 22:00 Lantus SUB-Q QHS SAVANNAH Insulin Human Lispro 0 unit 09/15/18 16:30 09/16/18 15:58 Humalog SUB-Q 8 unit ACHS SAVANNAH Administration Protocol Lorazepam 2 mg 09/16/18 20:23 Ativan IV Q4H PRN Seizures Losartan Potassium 100 mg 09/16/18 10:00 09/16/18 13:45 Cozaar PO 100 mg QDAY SAVANNAH Administration Ondansetron HCl 4 mg 09/15/18 21:04 Zofran IV Q8H PRN Nausea And Vomiting Oxycodone/Acetaminophen 1 tab 09/15/18 21:04 Percocet 5/325 PO Q6H PRN Pain, Moderate (4-6) Sodium Chloride 10 ml 09/15/18 22:00 09/16/18 13:47 Sodium Chloride Flush Syringe 10 Ml IV 10 ml BID SAVANNAH Administration Sodium Chloride 10 ml 09/15/18 21:04 Sodium Chloride Flush Syringe 10 Ml IV PRN PRN LINE FLUSH
[2018-09-16] MEDS: LOVENOX SUB-Q SCH (22:54)
[2018-09-16] MEDS: LANTUS SUB-Q SCH (22:59)
[2018-09-17] MEDS: HumaLOG SUB-Q SCH ×4 (08:30→23:03)
--- NOTE | 2018-09-17 10:22 | Progress Note ---
Assessment and Plan Right lower lobe lung mass Tobacco use disorder, ongoing Syncope Type 2 DM, poorly controlled HTN Per interventional, on review of previous films the lung mass has been there for several years and has demonstrated stability. Continue all supportive care -Nicotine withdrawal precautions -Smoking cessation counselling done at the bedside. -Accuchecks, glycemic control -VTE prophylaxis -Nicotine withdrawal precautions -Lifestyle modifications -Blood pressure control Subjective Date of service: 09/17/18 Interval history: Patient seen and examined. follow up for lung mass, Tobacco use disorder was apparently altered over night, work up for delirium/encephaloapthy on going. Had MRI of the brain- report pending. Seen and examined. Vitals, labs, medications, chart reviewed. He is appropriate in his responses, denies any chest pain, no shortness o breath, no fevers or chills. wants to know when he can go home. Currently being evaluated by Neurology Objective - Exam Narrative Exam: VITAL SIGNS: Reviewed. GENERAL: The patient appeared well nourished and normally developed, Vital signs as documented. HEAD: No signs of head trauma. EYES: Pupils are equal. Extraocular motions intact. EARS: Hearing grossly intact. MOUTH: Oropharynx is normal. NECK: No adenopathy, no JVD. CHEST: Chest with clear breath sounds bilaterally. No wheezes, rales, or rhonchi. CARDIAC: Regular rate and rhythm. S1 and S2, without murmurs, gallops, or rubs. VASCULAR: No Edema. Peripheral pulses normal and equal in all extremities. ABDOMEN: Soft, non tender and non distended. No rebound or guarding, and no masses palpated. Bowel Sounds normal. MUSCULOSKELETAL: Good range of motion of all major joints. Extremities without clubbing, cyanosis or edema. NEUROLOGIC EXAM: Alert and oriented x 3 No focal sensory or strength deficits PSYCHIATRIC: Mood normal. SKIN: No rash or lesions. Vital Signs - 12hr 09/16/18 09/17/18 09/17/18 22:45 04:55 04:59 Temperature 98.4 F 98.2 F 98.2 F Pulse Rate 62 58 L 64 Respiratory 20 20 18 Rate Blood Pressure 133/61 Blood Pressure 122/68 101/52 [Left] O2 Sat by Pulse 97 97 100 Oximetry 09/17/18 05:02 Temperature 98.2 F Pulse Rate 73 Respiratory 18 Rate Blood Pressure Blood Pressure 133/64 [Left] O2 Sat by Pulse 100 Oximetry CBC and BMP: 09/16/18 04:55 09/16/18 04:55 Abnormal lab findings: Abnormal Labs 09/15/18 09/15/18 09/15/18 10:29 17:58 21:41 MCV 80 L MCH 26 L Eos % (Auto) 10.7 H Eos # 1.1 H Seg Neutrophils % Seg Neutrophils # BUN Glucose POC Glucose 293 H 354 H Hemoglobin A1c Total Protein Albumin 09/15/18 09/15/18 09/15/18 21:41 21:41 21:58 MCV MCH Eos % (Auto) Eos # Seg Neutrophils % Seg Neutrophils # BUN 25 H Glucose 335 H POC Glucose 309 H Hemoglobin A1c 13.4 H Total Protein 5.8 L Albumin 3.2 L 09/16/18 09/16/18 09/16/18 04:55 04:55 07:45 MCV 80 L MCH 26 L Eos % (Auto) Eos # Seg Neutrophils % 77.9 H Seg Neutrophils # 8.5 H BUN 24 H Glucose 101 H POC Glucose 126 H Hemoglobin A1c Total Protein Albumin 09/16/18 09/16/18 09/16/18 13:41 15:32 19:17 MCV MCH Eos % (Auto) Eos # Seg Neutrophils % Seg Neutrophils # BUN Glucose POC Glucose 271 H 402 H 427 H Hemoglobin A1c Total Protein Albumin 09/16/18 22:00 MCV MCH Eos % (Auto) Eos # Seg Neutrophils % Seg Neutrophils # BUN Glucose POC Glucose 262 H Hemoglobin A1c Total Protein Albumin
--- NOTE | 2018-09-17 13:05 | Progress Note ---
Subjective Date of service: 09/17/18 Interval history: i HAVE ATTEMPTED TO REVIEW THE mri BUT THERE IS SEVERE IMAGING ARTEFACT THAT WILL HAVE TO BE RESOLVED WITH TECHNOLOGIST i WILL LEAVE RESOLUTION NOTE LATER SYNCOPE W/U IN PROGRESS Objective - Vital Sign Vital Signs - 12hr 09/17/18 09/17/18 09/17/18 04:55 04:59 05:02 Temperature 98.2 F 98.2 F 98.2 F Pulse Rate 58 L 64 73 Respiratory 20 18 18 Rate Blood Pressure Blood Pressure 122/68 101/52 133/64 [Left] O2 Sat by Pulse 97 100 100 Oximetry 09/17/18 11:58 Temperature 98.1 F Pulse Rate 53 L Respiratory 20 Rate Blood Pressure 119/58 Blood Pressure [Left] O2 Sat by Pulse 100 Oximetry - Laboratory Findings CBC and BMP: 09/16/18 04:55 09/16/18 04:55 Abnormal Lab Findings: Abnormal Labs 09/15/18 09/15/18 09/15/18 10:29 17:58 21:41 MCV 80 L MCH 26 L Eos % (Auto) 10.7 H Eos # 1.1 H Seg Neutrophils % Seg Neutrophils # BUN Glucose POC Glucose 293 H 354 H Hemoglobin A1c Total Protein Albumin 09/15/18 09/15/18 09/15/18 21:41 21:41 21:58 MCV MCH Eos % (Auto) Eos # Seg Neutrophils % Seg Neutrophils # BUN 25 H Glucose 335 H POC Glucose 309 H Hemoglobin A1c 13.4 H Total Protein 5.8 L Albumin 3.2 L 09/16/18 09/16/18 09/16/18 04:55 04:55 07:45 MCV 80 L MCH 26 L Eos % (Auto) Eos # Seg Neutrophils % 77.9 H Seg Neutrophils # 8.5 H BUN 24 H Glucose 101 H POC Glucose 126 H Hemoglobin A1c Total Protein Albumin 09/16/18 09/16/18 09/16/18 13:41 15:32 19:17 MCV MCH Eos % (Auto) Eos # Seg Neutrophils % Seg Neutrophils # BUN Glucose POC Glucose 271 H 402 H 427 H Hemoglobin A1c Total Protein Albumin 09/16/18 09/17/18 22:00 12:03 MCV MCH Eos % (Auto) Eos # Seg Neutrophils % Seg Neutrophils # BUN Glucose POC Glucose 262 H 225 H Hemoglobin A1c Total Protein Albumin
[2018-09-17] MEDS: BABY ASPIRIN PO SCH (14:07)
[2018-09-17] MEDS: COZAAR PO SCH (14:13)
[2018-09-17] MEDS: NORVASC PO SCH (14:14)
--- NOTE | 2018-09-17 14:25 | Magnetic Resonance Report ---
MRI OF THE BRAIN WITHOUT CONTRAST: HISTORY: Seizure PROCEDURE: Multiplanar, multisequence MR imaging of the brain without IV contrast was performed. FINDINGS: Compared to the CT head without contrast performed 09/15/18. Susceptibility artifact is identified in portions of the left parietal lobe and superior cerebellum which appear to be secondary to tiny metallic foreign bodies in the subcutaneous soft tissues. These areas are slightly compromised on some of the sequences. A chronic infarct extending from the left basal ganglia to the left esteban radiata measures up to 1.7 x 0.9 cm in axial plane. A chronic 5 mm lacunar infarct is identified in the left thalamus. No evidence for acute ischemia, hemorrhage or mass. No extra-axial fluid collection. The midline structures are central. The basal cisterns are patent. Normal ventricular size. The orbital cavities and sella turcica demonstrate no abnormality. There is moderate mucosal thickening throughout paranasal sinuses. IMPRESSION: Slightly limited examination secondary to susceptibility artifact as described. No acute intracranial process is identified. Chronic focal infarcts in the left basal ganglia and left esteban radiata as described above. Chronic pansinusitis. Correlate for acute symptoms.
[2018-09-17] MEDS: SODIUM CHLORIDE FLUSH SYRINGE 10 ML IV SCH (17:21)
--- NOTE | 2018-09-17 19:10 | Progress Note ---
Assessment and Plan Assessment and plan: Patient is a 63 yo Ecu[place] man (who does speak and understand Persian) with a history of CVA, HTN and T2DM who presented with a syncopal episode. Patient initially came to [facility] ED on 09/15/18 for high blood sugar found by PCP. Patient has been out of Lantus x 1 week. He was treated with insulin in ED and sent home the same day. When he got home, he had a syncope episode and was brought ba ck the same day on 09/15/18. * CT chest: IMPRESSION: Chronic granulomatous disease as described above which is unchanged since 10/20/09. No suspicious pulmonary nodule. * CT head: Remote Stroke in the left temporal lobe, No acute stroke * MRI negative for acute stroke -Syncope question possible underlying seizures vs cardiogenic==>HR dropped into 40, EKG on admission ?WPW, will consult Cardiology, review ECHO, Neurology is following, EEG today -Diabetes mellitus type 2 on Insulin with hyperglycemia and A1c 13.4: middle school counselor on compliance, -Tobacco use disorder: middle school counselor on stopping -DHIRAJ Cr was 1.8 now 1.3, vasomotor nephropathy, poa: continue to monitor bmp -Right lobe pulmonary nodule stable for the past 9 years per interventional radiology -HTN with bradycardia, HR dropped to 40: continue telemetry, consulted Cardiology and ordered ECHO -H/o CVA and Remote Temporal lobe stroke EEG still pending, i called Dr. Hopkins, await call back w/u bradycardia History Interval history: Patient was seen and examined. Follow-up on current diagnosis of syncope, resolved. Overnight uneventful. Patient denies any chest pain, shortness breath, nausea/vomiting or severe headaches. Imaging, nursing note, chart, labs and old chart reviewed. Discussed with patient. Hospitalist Physical - Physical exam Narrative exam: Gen: WDWN, NAD, Awake, Alert, Orientated HEENT: NCAT, EOMI, PERRL, OP Clear Neck: supple, no adenopathy, no thyromegaly, no JVD CVS/Heart: RRR, normal S1S2, pulses present bilaterally Chest/Lungs: CTA B, Symmetrical chest expansion, good air entry bilaterally GI/Abdomen: soft, NTND, good bowel sounds, no guarding or rebound /Bladder: no suprapubic tenderness, no CVA or paraspinal tenderness Extermity/Skin: no c/c/e, no obvious rash MSK: FROM x 4 Neuro: CN 2-12 grossly intact, no new focal deficits, gait normal Psych: calm - Constitutional Vitals: Temp Pulse Resp BP Pulse Ox 98.2 F 59 L 20 132/46 100 09/17/18 17:04 09/17/18 17:31 09/17/18 17:04 09/17/18 17:04 09/17/18 17:04 General appearance: Present: no acute distress, well-nourished Results - Labs CBC & Chem 7: 09/16/18 04:55 09/16/18 04:55 Labs: Laboratory Last Values WBC 10.9 K/mm3 (4.5-11.0) 09/16/18 04:55 RBC 4.74 M/mm3 (3.65-5.03) 09/16/18 04:55 Hgb 12.4 gm/dl (11.8-15.2) 09/16/18 04:55 Hct 38.1 % (35.5-45.6) 09/16/18 04:55 MCV 80 fl (84-94) L 09/16/18 04:55 MCH 26 pg (28-32) L 09/16/18 04:55 MCHC 33 % (32-34) 09/16/18 04:55 RDW 13.6 % (13.2-15.2) 09/16/18 04:55 Plt Count 174 K/mm3 (140-440) 09/16/18 04:55 Lymph % (Auto) 13.8 % (13.4-35.0) 09/16/18 04:55 [place] % (Auto) 4.6 % (0.0-7.3) 09/16/18 04:55 Eos % (Auto) 3.3 % (0.0-4.3) 09/16/18 04:55 Baso % (Auto) 0.4 % (0.0-1.8) 09/16/18 04:55 Lymph # 1.5 K/mm3 (1.2-5.4) 09/16/18 04:55 [place] # 0.5 K/mm3 (0.0-0.8) 09/16/18 04:55 Eos # 0.4 K/mm3 (0.0-0.4) 09/16/18 04:55 Baso # 0.0 K/mm3 (0.0-0.1) 09/16/18 04:55 Seg Neutrophils % 77.9 % (40.0-70.0) H 09/16/18 04:55 Seg Neutrophils # 8.5 K/mm3 (1.8-7.7) H 09/16/18 04:55 Sodium 143 mmol/L (137-145) 09/16/18 04:55 Potassium 3.7 mmol/L (3.6-5.0) 09/16/18 04:55 Chloride 105.4 mmol/L (98-107) 09/16/18 04:55 Carbon Dioxide 23 mmol/L (22-30) 09/16/18 04:55 Anion Gap 18 mmol/L 09/16/18 04:55 BUN 24 mg/dL (9-20) H 09/16/18 04:55 Creatinine 1.3 mg/dL (0.8-1.5) 09/16/18 04:55 Estimated GFR 56 ml/min 09/16/18 04:55 BUN/Creatinine Ratio 18 % 09/16/18 04:55 Glucose 101 mg/dL (75-100) H 09/16/18 04:55 POC Glucose 218 (70-105) H 09/17/18 15:57 Hemoglobin A1c 13.4 % (4-6) H 09/15/18 21:41 Calcium 8.6 mg/dL (8.4-10.2) 09/16/18 04:55 Total Bilirubin 0.20 mg/dL (0.1-1.2) 09/15/18 21:41 AST 11 units/L (5-40) 09/15/18 21:41 ALT 10 units/L (7-56) 09/15/18 21:41 Alkaline Phosphatase 71 units/L (35-129) 09/15/18 21:41 Troponin T < 0.010 ng/mL (0.00-0.029) 09/16/18 07:54 Total Protein 5.8 g/dL (6.3-8.2) L 09/15/18 21:41 Albumin 3.2 g/dL (3.9-5) L 09/15/18 21:41 Albumin/Globulin Ratio 1.2 % 09/15/18 21:41 Urine Color Yellow (Yellow) 09/15/18 10:05 Urine Turbidity Clear (Clear) 09/15/18 10:05 Urine pH 6.0 (5.0-7.0) 09/15/18 10:05 Ur Specific [place] 1.017 (1.003-1.030) 09/15/18 10:05 Urine Protein 100 mg/dl mg/dL (Negative) 09/15/18 10:05 Urine Glucose (UA) >=500 mg/dL (Negative) 09/15/18 10:05 Urine Ketones Neg mg/dL (Negative) 09/15/18 10:05 Urine Blood Sm (Negative) 09/15/18 10:05 Urine Nitrite Neg (Negative) 09/15/18 10:05 Urine Bilirubin Neg (Negative) 09/15/18 10:05 Urine Urobilinogen < 2.0 mg/dL (<2.0) 09/15/18 10:05 Ur Leukocyte Esterase Tr (Negative) 09/15/18 10:05 Urine WBC (Auto) 2.0 /HPF (0.0-6.0) 09/15/18 10:05 Urine RBC (Auto) 1.0 /HPF (0.0-6.0) 09/15/18 10:05 U Epithel Cells (Auto) 3.0 /HPF (0-13.0) 09/15/18 10:05 Urine Bacteria (Auto) 1+ /HPF (Negative) 09/15/18 10:05 Urine Mucus Few /HPF 09/15/18 10:05 Urine Sperm Few /HPF (PHYSICAL TRAINER) 09/15/18 10:05 Active Medications - Current Medications Current Medications: Generic Name Dose Route Start Last Admin Trade Name Freq PRN Reason Stop Dose Admin Acetaminophen 650 mg 09/15/18 21:04 Tylenol PO Q4H PRN Pain MILD(1-3)/Fever >100.5/BLACKMAN Amlodipine Besylate 10 mg 09/16/18 10:00 09/17/18 14:14 Norvasc PO 10 mg DAILY SAVANNAH Administration Aspirin 81 mg 09/17/18 10:00 09/17/18 14:07 Baby Aspirin PO 81 mg QDAY [facility] Administration Atorvastatin Calcium 40 mg 09/17/18 22:00 Lipitor PO QHS [facility] Enoxaparin Sodium 40 mg 09/16/18 22:00 09/16/18 22:54 Lovenox SUB-Q 40 mg QDAY@2200 SAVANNAH Administration Hydromorphone HCl 0.5 mg 09/15/18 21:04 Dilaudid IV Q3H PRN Pain , Severe (7-10) Sodium Chloride 1,000 mls @ 150 mls/hr 09/15/18 22:00 09/16/18 13:49 Nacl 0.9% 1000 Ml IV 100 mls/hr DIRECT SAVANNAH Administration Insulin Glargine 25 units 09/16/18 22:00 09/16/18 22:59 Lantus SUB-Q 25 units QHS SAVANNAH Administration Insulin Human Lispro 0 unit 09/15/18 16:30 09/17/18 17:21 Humalog SUB-Q 3 unit ACHS SAVANNAH Administration Protocol Lorazepam 2 mg 09/16/18 20:23 Ativan IV Q4H PRN Seizures Losartan Potassium 100 mg 09/16/18 10:00 09/17/18 14:13 Cozaar PO 100 mg QDAY SAVANNAH Administration Ondansetron HCl 4 mg 09/15/18 21:04 Zofran IV Q8H PRN Nausea And Vomiting Oxycodone/Acetaminophen 1 tab 09/15/18 21:04 Percocet 5/325 PO Q6H PRN Pain, Moderate (4-6) Sodium Chloride 10 ml 09/15/18 22:00 09/17/18 17:21 Sodium Chloride Flush Syringe 10 Ml IV 10 ml BID SAVANNAH Administration Sodium Chloride 10 ml 09/15/18 21:04 Sodium Chloride Flush Syringe 10 Ml IV PRN PRN LINE FLUSH
[2018-09-17] MEDS: NACL 0.9% 1000 ML 1,000 ML IV SCH (20:45)
[2018-09-17] MEDS: LOVENOX SUB-Q SCH (23:02)
[2018-09-17] MEDS: LANTUS SUB-Q SCH (23:03)
[2018-09-18] MEDS: SODIUM CHLORIDE FLUSH SYRINGE 10 ML IV SCH ×2 (08:17→10:03)
[2018-09-18] MEDS: HumaLOG SUB-Q SCH ×3 (08:17→17:17)
[2018-09-18] MEDS: NACL 0.9% 1000 ML 1,000 ML IV SCH ×2 (08:19→17:17)
[2018-09-18 09:46] LABS: Calcium 7.6 mg/dL (8.4-10.2); Hematocrit 33.5 % (35.5-45.6); Hemoglobin 11.1 gm/dl (11.8-15.2); Mean Corpuscular HGB Conc 33 % (32-34); Mean Corpuscular Volume 80 fl (84-94); Platelet Count 160 K/mm3 (140-440); Red Blood Count 4.19 M/mm3 (3.65-5.03); Red Cell Distribution Width 13.5 % (13.2-15.2)
[2018-09-18] MEDS: NORVASC PO SCH (10:03)
[2018-09-18] MEDS: BABY ASPIRIN PO SCH (10:03)
[2018-09-18] MEDS: COZAAR PO SCH (10:03)
--- NOTE | 2018-09-18 11:41 | Progress Note ---
Assessment and Plan Right lower lobe lung mass Tobacco use disorder, ongoing Syncope Type 2 DM, poorly controlled HTN (Per interventional, on review of previous films the lung mass has been there for several years and has demonstrated stability) - Continue all supportive care - continue nicotine withdrawal precautions - continued smoking cessation counselling done at the bedside. - continue accuchecks with glycemic control via SSI for target BG < 180 mg/dl - VTE prophylaxis - Lifestyle modifications - Blood pressure control ... re-evaluate prn Subjective Date of service: 09/18/18 Principal diagnosis: RLL lung mass; Tobacco use disorder; Syncope; DM II Interval history: Patient is seen today for: Right lower lobe lung mass; Tobacco use disorder, ongoing; Syncope; Type 2 DM, poorly controlled Seen and examined at bedside; 24hour events reviewed; nursing and respiratory care staff consulted; no adverse overnight events reported to me; resting peacefully in bed; denies acute chest pains or palpitations; No N/V/F/C; no hemoptysis Objective Vital Signs - 12hr 09/18/18 05:47 Temperature 98.6 F Pulse Rate 59 L Respiratory 16 Rate Blood Pressure 126/50 O2 Sat by Pulse 94 Oximetry Constitutional: no acute distress, alert Eyes: non-icteric ENT: oropharynx moist Neck: supple, no lymphadenopathy, no JVD Effort: mildly labored Ascultation: Bilateral: clear, diminished breath sounds Percussion: Bilateral: not dull Cardiovascular: regular rate and rhythm Gastrointestinal: normoactive bowel sounds, soft, non-tender, non-distended Integumentary: normal Extremities: no cyanosis, no edema, pink and warm, pulses normal Neurologic: normal mental status, non-focal exam, pupils equal and round, CN II- XII normal Psychiatric: mood appropriate, affect normal CBC and BMP: 09/18/18 09:16 09/18/18 09:16 Abnormal lab findings: Abnormal Labs 09/15/18 09/15/18 09/15/18 10:29 17:58 21:41 Hgb Hct MCV 80 L MCH 26 L Eos % (Auto) 10.7 H Eos # 1.1 H Seg Neutrophils % Seg Neutrophils # Chloride Carbon Dioxide BUN Glucose POC Glucose 293 H 354 H Hemoglobin A1c Calcium Total Protein Albumin 09/15/18 09/15/18 09/15/18 21:41 21:41 21:58 Hgb Hct MCV MCH Eos % (Auto) Eos # Seg Neutrophils % Seg Neutrophils # Chloride Carbon Dioxide BUN 25 H Glucose 335 H POC Glucose 309 H Hemoglobin A1c 13.4 H Calcium Total Protein 5.8 L Albumin 3.2 L 09/16/18 09/16/18 09/16/18 04:55 04:55 07:45 Hgb Hct MCV 80 L MCH 26 L Eos % (Auto) Eos # Seg Neutrophils % 77.9 H Seg Neutrophils # 8.5 H Chloride Carbon Dioxide BUN 24 H Glucose 101 H POC Glucose 126 H Hemoglobin A1c Calcium Total Protein Albumin 09/16/18 09/16/18 09/16/18 13:41 15:32 19:17 Hgb Hct MCV MCH Eos % (Auto) Eos # Seg Neutrophils % Seg Neutrophils # Chloride Carbon Dioxide BUN Glucose POC Glucose 271 H 402 H 427 H Hemoglobin A1c Calcium Total Protein Albumin 09/16/18 09/17/18 09/17/18 22:00 12:03 15:57 Hgb Hct MCV MCH Eos % (Auto) Eos # Seg Neutrophils % Seg Neutrophils # Chloride Carbon Dioxide BUN Glucose POC Glucose 262 H 225 H 218 H Hemoglobin A1c Calcium Total Protein Albumin 09/17/18 09/18/18 09/18/18 22:14 07:58 09:16 Hgb 11.1 L Hct 33.5 L MCV 80 L MCH 26 L Eos % (Auto) Eos # Seg Neutrophils % Seg Neutrophils # Chloride Carbon Dioxide BUN Glucose POC Glucose 315 H 65 L Hemoglobin A1c Calcium Total Protein Albumin 09/18/18 09/18/18 09:16 11:08 Hgb Hct MCV MCH Eos % (Auto) Eos # Seg Neutrophils % Seg Neutrophils # Chloride 109.8 H Carbon Dioxide 21 L BUN Glucose 159 H POC Glucose 116 H Hemoglobin A1c Calcium 7.6 L Total Protein Albumin CT scan - chest: image reviewed (stable granulomata with RLL 2.5 cm lesion largest) Allied health notes reviewed: nursing
--- NOTE | 2018-09-18 13:06 | Consultation ---
REFERRING PHYSICIAN: Sarmad Roberson MD REASON FOR EVALUATION: Syncope, possible bradycardia. HISTORY OF PRESENT ILLNESS: This is a 63-year-old gentleman who is known to have had hypertension and diabetes as well as history of cerebrovascular accident, admitted with an episode of syncope. The patient denies any chest pain or difficulty in breathing. When asked, he says whenever his blood sugar goes down, he has fainting spells. The patient is known to be a chronic smoker. No prior myocardial infarction, congestive heart failure, rheumatic fever, or cardiac murmur. The patient was noted to have heart rates in the range of high 40s on the monitor and hence the consult. REVIEW OF SYSTEMS: HEAD, EYES, EARS, NOSE AND THROAT: No symptoms. ENDOCRINE: The patient is known to have diabetes with episodes of hypoglycemia as well as hyperglycemia. GASTROINTESTINAL: Abdominal pain, nausea, or vomiting. Bowel habits have been regular. GENITOURINARY: No symptoms. CENTRAL NERVOUS SYSTEM: History of cerebrovascular accident and syncope. Neurology evaluation is also in progress. PHYSICAL EXAMINATION: GENERAL: Adult male, well built and nourished, in no distress. VITAL SIGNS: Blood pressure 135/60, heart rate 50, respirations 18. HEAD, EYES, EARS, NOSE AND THROAT: Normal. NECK: Supple. No thyromegaly. Both carotids are palpable and equal. Neck veins are flat. CHEST: Symmetrical. LUNGS: Essentially clear. HEART: S1 and S2 are heard well. No S3. No significant murmurs are appreciated. ABDOMEN: Soft, nontender, no hepatosplenomegaly. Peristaltic sounds are heard. EXTREMITIES: No edema or calf tenderness. LABORATORY DATA: EKG sinus rhythm. There is question of a small delta wave in some of these leads and may consider preexcitation. I have reviewed the rhythm strips and the patient is noted to be in sinus rhythm, periods of sinus bradycardia. The lower rate is noted to be when he is sleeping. The patient had a nuclear stress test. The myocardial perfusion study is noted to be negative for ischemia. He had an echocardiogram, which showed mild left ventricular hypertrophy. Systolic function is normal with EF of 55-60%. Mild aortic regurgitation is present. Carotid duplex is noted to be negative. Atherosclerotic changes were noted. Brain MRI, no acute intracranial process, chronic focal infarction in the left basal ganglia noted. IMPRESSION: 1. Syncope. 2. History of cerebrovascular accident. 3. Diabetes. 4. Sinus bradycardia. 5. ? Preexcitation syndrome. 6. Diabetes with periods of hypoglycemia. The patient is seen for cardiac evaluation. Clinically, cardiac status is stable. Doubt the bradycardia is causing his syncope. However, for further evaluation, we may consider obtaining an event monitor as an outpatient and also consider EP studies. As the blood pressure is staying stable in spite of the sinus bradycardia and as the complex is narrow along with the fact that his heart rate goes down to high 40s during sleep time, the syncope is probably related. Case discussed with Dr. Roberson. The patient will be monitored and followed closely with you. Thank you, Dr. Roberson, for allowing me to participate in the care of this pleasant gentleman. JOB# [id number] KIRBY/YENY MTDD
--- NOTE | 2018-09-18 17:37 | Discharge Summary ---
Providers - Providers Date of Admission: 09/15/18 11:37 Date of discharge: 09/18/18 Attending physician: SILVANA CHERRY 09/16/18 06:41 Consult to Physician [CONS] Routine Comment: Consulting Provider: HANY AGUILA Physician Instructions: Reason For Exam: solitary pulm nodule 09/16/18 11:39 Consult to Interventional Radiology [CONS] Routine Consulting Provider: HUBER PRECIADO Reason For Exam: Lobar nodule/mass- needs biopsy Place consult to:: DR. PRECIADO OFFICE Notified:: DR. Mcpherson OFFICE Phone number called:: [phone] Was contact made?: Yes If yes, spoke with:: ISABEL Time called:: 12:41 Comment:: NURSE IS NOTIFIED 09/16/18 20:21 Consult to Physician [CONS] Routine Comment: Consulting Provider: JUVE MOSS Physician Instructions: Reason For Exam: seizure 09/17/18 19:14 Consult to Physician [CONS] Routine Comment: Consulting Provider: WICHO DEVI Physician Instructions: Reason For Exam: bradycardia, WPW [facility] Condition: Stable Hospital course: Patient is a 63 yo [place] man (who does speak and understand Kenyan but daughter Jaad was seismic interpreter) with a history of CVA, HTN and T2DM who presented with a syncopal episode. Patient initially came to [facility] ED on 09/15/18 for high blood sugar found by PCP. Patient has been out of Lantus x 1 week. He was treated with insulin in ED and sent home the same day. When he got home, he had a syncope episode and was brought back the same day on 09/15/18. * CT chest: IMPRESSION: Chronic granulomatous disease as described above which is unchanged since 10/20/09. No suspicious pulmonary nodule. * CT head: Remote Stroke in the left temporal lobe, No acute stroke * MRI negative for acute stroke -Syncope question possible vasovagal and less likely cardiogenic==>spoke with Security Systems Administrator, EP study/event monitor can be done outpatient and sleep study outpatient -Diabetes mellitus type 2 on Insulin with hyperglycemia and A1c 13.4: alcohol and drug counselor on compliance, -Tobacco use disorder: alcohol and drug counselor on stopping -DHIRAJ Cr was 1.8 now 1.3, vasomotor nephropathy, poa: continue to monitor bmp -Right lobe pulmonary nodule stable for the past 9 years per interventional radiology -HTN with bradycardia, HR dropped to 40: spoke with Cardiology, usually happens at night -H/o CVA and Remote Temporal lobe stroke Disposition: DC-01 TO HOME OR SELFCARE Time spent for discharge: 34 minutes Core Measure Documentation - Palliative Care Palliative Care/ Comfort Measures: Not Applicable - Core Measures Any of the following diagnoses?: none - VTE Discharge Requirements Deep Vein Thrombosis/Pulmonary Embolism Present on Admission: No Has pt received <5 days of overlap therapy or INR<2.0: No Anticoagulant overlap therapy prescribed at discharge: No Contraindication No Overlap Therapy order at DC: Not Indicated Exam - Physical Exam Narrative exam: Gen: WDWN, NAD, Awake, Alert, Orientated HEENT: NCAT, EOMI, PERRL, OP Clear Neck: supple, no adenopathy, no thyromegaly, no JVD CVS/Heart: RRR, normal S1S2, pulses present bilaterally Chest/Lungs: CTA B, Symmetrical chest expansion, good air entry bilaterally GI/Abdomen: soft, NTND, good bowel sounds, no guarding or rebound /Bladder: no suprapubic tenderness, no CVA or paraspinal tenderness Extermity/Skin: no c/c/e, no obvious rash MSK: FROM x 4 Neuro: CN 2-12 grossly intact, no new focal deficits, gait normal Psych: calm - Constitutional Vitals: Temp Pulse Resp BP Pulse Ox 98.0 F 50 L 18 135/60 97 09/18/18 11:37 09/18/18 11:37 09/18/18 11:37 09/18/18 11:37 09/18/18 11:37 Plan Activity: up only with assistance, fall precautions, other (no strenous activity until cleared by Dr. Jose Tolliver, including driving, sex, welding machine operator gas metal arc, etc...) Diet: regular Special Instructions: smoking cessation Follow up with: LIZETH CORDOVA MD [Primary Care Provider] - 3-5 Days JOSE TOLLIVER MD [Staff Physician] - 7 Days HANY AGUILA MD [Staff Physician] - 7 Days JUVE MOSS MD [Staff Physician] - 7 Days Prescriptions: Insulin Glargine [Lantus VIAL] 14 units SUB-Q QHS #30 units Insulin Regular, Human [HumuLIN R] 0 unit SQ AC #1 vial
[2018-09-18 17:56] VITALS: BP 154/61
== END 2018-09-18 20:25 | disposition home or self-care (01) | DRG 73 ==
LOC: ED 06:46 → 3A 11:37
PROVIDERS: ADMIT Internal Medicine; ATTEND Internal Medicine
DX: G90.8 Other disorders of autonomic nervous system (principal); N17.0 Acute kidney failure with tubular necrosis; E11.65 Type 2 diabetes mellitus with hyperglycemia; I10 Essential (primary) hypertension; E11.649 Type 2 diabetes mellitus with hypoglycemia without coma; F17.210 Nicotine dependence, cigarettes, uncomplicated; R91.8 Other nonspecific abnormal finding of lung field; R00.1 Bradycardia, unspecified; D71 Functional disorders of polymorphonuclear neutrophils; Z71.6 Tobacco abuse counseling; Z82.49 Family history of ischemic heart disease and other diseases of the circulatory system; Z86.73 Personal history of transient ischemic attack (TIA), and cerebral infarction without residual deficits
CPT/HCPCS: 36415; 70551; 71045; 71260; 78452; 80048; 80053; 81001; 82962; 83036; 84484; 85025; 85027; 93005; 93010; 93017; 93306; 93880; 95819; 99406; G0378; A9270-GY; A9502; J1650; J1815; J2785; J7030; Q9967